=== PATIENT | female | born 1955 | race Caucasian/White ===

== ENCOUNTER 2018-06-11 14:38 | Inpatient (IN) | payer MEDICAID ==
[~2018-06-11] VITALS: Ht 149.9 cm; Wt 71.2 kg
[2018-06-11] MEDS ORDERED: TRAZ-212 PO (14:47)
[2018-06-11] MEDS ORDERED: RISP0.2514 PO (14:47)
[2018-06-11] MEDS ORDERED: HAL05 PO (14:47)
[2018-06-11] MEDS ORDERED: METF-816 PO (14:47)
[2018-06-11] MEDS ORDERED: DIVA125C2 PO (14:47)
[2018-06-11] MEDS ORDERED: CARV3.1242 PO (14:47)
[2018-06-11] MEDS ORDERED: ONDANSETRON HCL 4MG/2ML INJ IV STA (20:44)
[2018-06-11] MEDS ORDERED: MORPHINE SULFATE 4 MG/ML CPJ (NOT FOR IM USE) IV STA (20:44)
[2018-06-11] MEDS ORDERED: NITROGLYCERIN OINT 1GM/INCH UDPKT TD ONE (20:45)
[2018-06-11] MEDS ORDERED: NITROGLYCERIN 0.4MG TABLET SL SL PRN ×2 (20:45→22:15)
[2018-06-11 21:30] LABS: BASOPHILS % 0.5 % (0.0-2.0); EOSINOPHILS % 2.7 % (0.0-5.0); HEMATOCRIT. 36.2 % (36.0-48.0); HEMOGLOBIN. 12.4 g/dL (12.0-16.0); LYMPHOCYTES % 46.1 % (20.0-50.0); MEAN CORPUSCULAR HEMOGLOBIN 31.9 pg (28.0-32.0); MEAN CORPUSCULAR VOLUME 93.5 fL (81.0-99.0); MEAN PLATELET VOLUME 7.2 fl (7.4-10.4); MONOCYTES % 14.2 % (2.0-8.0); NEUTROPHILS % 36.5 % (40.0-76.0); PLATELET 148 x1000/uL (130-400); RED BLOOD CELL COUNT 3.87 mill/uL (4.2-5.4); RED CELL DISTRIBUTION WIDTH 13.7 % (11.6-14.6)
[2018-06-11 21:34] LABS: INR 0.9; PARTIAL THROMBOPLASTIN TIME 30.3 sec (23.4-31.0); PROTHROMBIN TIME 9.4 sec (9.1-11.1)
[2018-06-11 21:36] LABS: CHLORIDE 96 mEq/L (98-107)
[2018-06-11] MEDS ORDERED: MAGNESIUM 1 G PREMIX 100 ML IV ONE (22:00)
[2018-06-11] MEDS ORDERED: ONDANSETRON HCL 4MG/2ML INJ IV PRN (22:15)
[2018-06-11] MEDS ORDERED: NA PHOS,M-B/NA PHOS,DI-BA ENEMA 118ML PR PRN (22:15)
[2018-06-11] MEDS ORDERED: MAGNESIUM/ALUMINUM HYDROXIDE/SIMETHICONE 30ML UDC PO PRN (22:15)
[2018-06-11] MEDS ORDERED: IPRATROPIUM/ALBUTEROL 0.5-3(2.5)MG/3ML NEB INH PRN (22:15)
[2018-06-11] MEDS ORDERED: ACETAMINOPHEN 325MG TABLET PO PRN (22:15)
[2018-06-11] MEDS ORDERED: KETOROLAC 15MG/ML VIAL IV PRN (22:15)
[2018-06-11] MEDS ORDERED: DOCUSATE SODIUM 100MG CAPSULE PO PRN (22:15)
[2018-06-11] MEDS ORDERED: LORAZEPAM 0.5MG TABLET PO PRN (22:15)
[2018-06-11] MEDS ORDERED: GUAIFENESIN 200MG/10ML SUGAR FREE UDC PO PRN (22:15)
[2018-06-11] MEDS ORDERED: CLONIDINE 0.1MG TABLET PO PRN (22:15)
[2018-06-11] MEDS ORDERED: DEXTROSE 50% WATER 50ML SYRINGE IV PRN (22:15)
[2018-06-11] MEDS ORDERED: HALOPERIDOL LACTATE 5MG/ML VIAL IM PRN (22:15)
[2018-06-11 22:39] LABS: ETHANOL BLOOD < 10 mg/dL
[2018-06-11 22:42] LABS: HDL CHOLESTEROL 64 mg/dL (40-59); LDL CHOLESTEROL 94 mg/dL (5-100)
[2018-06-11 22:43] LABS: *AMPHETAMINES SCREEN URINE NEGATIVE (NEGATIVE); *BARBITURATES SCREEN URINE NEGATIVE (NEGATIVE); *BENZODIAZEPINES SCREEN URINE NEGATIVE (NEGATIVE); *COCAINE SCREEN URINE NEGATIVE (NEGATIVE); METHADONE URINE SCREEN NEGATIVE (NEGATIVE)
[2018-06-11 22:44] LABS: CANNABINOID URINE SCREEN NEGATIVE (NEGATIVE); OPIATES URINE SCREEN NEGATIVE (NEGATIVE); PHENCYCLIDINE URINE SCREEN NEGATIVE (NEGATIVE)
[2018-06-12 03:15] VITALS: BP 143/66
[2018-06-12] MEDS ORDERED: MULT-1116 PO (04:23)
[2018-06-12] MEDS ORDERED: ATOR10TA69 PO (04:24)
[2018-06-12] MEDS ORDERED: SENN-149 PO (04:26)
[2018-06-12] MEDS ORDERED: MOME13HF2 IH (04:27)
[2018-06-12] MEDS ORDERED: ALBU18HF2 IH (04:29)
[2018-06-12] MEDS ORDERED: ESCI20TA36 PO (04:30)
[2018-06-12] MEDS ORDERED: ASPI-1158 PO (04:31)
[2018-06-12] MEDS: BLOOD SUGAR DIAGNOSTIC STRIP TEST SCH ×4 (05:56→20:48)
[2018-06-12] MEDS: VALPROIC ACID 250MG CAPSULE PO SCH ×3 (06:08→21:05)
[2018-06-12] MEDS: INSULIN LISPRO 100 UNITS/ML SUBCUT SCH ×4 (07:50→20:48)
[2018-06-12 08:07] VITALS: BP 140/60
[2018-06-12] MEDS: FAMOTIDINE 20MG TABLET PO SCH ×2 (09:05→21:05)
[2018-06-12] MEDS: METOPROLOL TARTRATE 25MG TABLET PO SCH ×2 (09:06→21:00)
[2018-06-12] MEDS: LISINOPRIL 20MG TABLET PO SCH ×2 (09:06→21:00)
[2018-06-12] MEDS: ASPIRIN 325MG EC TABLET PO SCH (09:06)
[2018-06-12] MEDS: ENOXAPARIN 40MG/0.4ML SYR SUBCUT SCH (09:07)
[2018-06-12 11:46] VITALS: BP 127/68
[2018-06-12 12:28] LABS: CREATINE KINASE 49 IU/L (26-192); CREATINE KINASE MB FRACTION < 1.0 ng/mL (0.5-3.6)
[2018-06-12 15:44] VITALS: BP 132/66
[2018-06-12 16:13] LABS: CREATINE KINASE 44 IU/L (26-192); CREATINE KINASE MB FRACTION < 1.0 ng/mL (0.5-3.6)
[2018-06-12 19:45] VITALS: BP 153/82
[2018-06-12] MEDS ORDERED: TRAZODONE HCL 50MG TABLET PO SCH (21:00)
[2018-06-12] MEDS ORDERED: ZOLPIDEM TARTRATE 5MG TABLET PO PRN (21:00)
[2018-06-12 23:05] VITALS: BP 110/44
[2018-06-13 05:05] VITALS: BP 145/78
[2018-06-13] MEDS: VALPROIC ACID 250MG CAPSULE PO SCH ×2 (05:59→14:10)
[2018-06-13] MEDS: BLOOD SUGAR DIAGNOSTIC STRIP TEST SCH ×2 (06:02→12:35)
[2018-06-13] MEDS: INSULIN LISPRO 100 UNITS/ML SUBCUT SCH ×2 (07:36→12:35)
[2018-06-13 08:00] VITALS: BP 129/63
[2018-06-13] MEDS: ASPIRIN 325MG EC TABLET PO SCH (08:51)
[2018-06-13] MEDS: LISINOPRIL 20MG TABLET PO SCH (08:52)
[2018-06-13] MEDS: FAMOTIDINE 20MG TABLET PO SCH (08:52)
[2018-06-13] MEDS: ENOXAPARIN 40MG/0.4ML SYR SUBCUT SCH (08:53)
[2018-06-13] MEDS: METOPROLOL TARTRATE 25MG TABLET PO SCH (08:56)
[2018-06-13 12:00] VITALS: BP 120/63
[2018-06-13 13:56] VITALS: BP 127/60
== END 2018-06-13 15:12 | disposition home or self-care (01) | DRG 243 ==
LOC: ER 15:41 → 6WST 22:01 → EDBEDREQ 22:04 → EDBEDREQTM 22:04 → ENRESERV 06-12 01:58
PROVIDERS: ADMIT Internal Medicine; ATTEND Internal Medicine
DX: K21.9 Gastro-esophageal reflux disease without esophagitis (principal); E44.0 Moderate protein-calorie malnutrition; E83.42 Hypomagnesemia; E87.1 Hypo-osmolality and hyponatremia; I25.2 Old myocardial infarction; F99 Mental disorder, not otherwise specified; E11.9 Type 2 diabetes mellitus without complications; I10 Essential (primary) hypertension; J45.909 Unspecified asthma, uncomplicated; Z79.4 Long term (current) use of insulin; Z79.82 Long term (current) use of aspirin; Z79.899 Other long term (current) drug therapy; Z88.0 Allergy status to penicillin; Z59.0 Homelessness; Z68.31 Body mass index [BMI] 31.0-31.9, adult; M94.0 Chondrocostal junction syndrome [Tietze]
CPT/HCPCS: 36415; 71045; 80061; 80165; 80305; 82550; 82553; 82962; 83036; 83735; 83880; 84484; 93005; 93970; 99285; G0482; J1650; J1885; J2270; J2405; J3475

== ENCOUNTER 2018-11-03 13:31 | Inpatient (IN) | payer MEDICAID ==
[~2018-11-03] VITALS: Ht 160 cm; Wt 74.8 kg
[~2018-11-03 13:31] MED LIST: ALBU18HF2 IH; ASPI-1158 PO; ATOR10TA69 PO; CARV3.1242 PO; DIVA125C2 PO; ESCI20TA36 PO; HAL05 PO; METF-816 PO; MOME13HF2 IH; MULT-1116 PO; RISP0.2514 PO; SENN-149 PO; TRAZ-212 PO
[2018-11-03 15:53] LABS: BASOPHILS % 0.7 % (0.0-2.0); CHLORIDE 102 mEq/L (98-107); HEMATOCRIT. 38.7 % (36.0-48.0); LYMPHOCYTES % 36.1 % (20.0-50.0); MEAN CORPUSCULAR HEMOGLOBIN 31.8 pg (28.0-32.0); MEAN CORPUSCULAR VOLUME 94.8 fL (81.0-99.0); MEAN PLATELET VOLUME 7.2 fl (7.4-10.4); MONOCYTES % 11.1 % (2.0-8.0); NEUTROPHILS % 49.1 % (40.0-76.0); PLATELET 214 x1000/uL (130-400); RED BLOOD CELL COUNT 4.08 mill/uL (4.2-5.4); RED CELL DISTRIBUTION WIDTH 13.9 % (11.6-14.6)
[2018-11-03] MEDS ORDERED: METHOCARBAMOL 750MG TABLET PO SCH (16:00)
[2018-11-04] MEDS ORDERED: ALBUTEROL 6.7GM HFA INHALER INH SCH (00:45)
[2018-11-04] MEDS ORDERED: DEXTROSE 50% WATER 50ML SYRINGE IV PRN (00:45)
[2018-11-04] MEDS ORDERED: ZOLPIDEM TARTRATE 5MG TABLET PO PRN (00:45)
[2018-11-04] MEDS ORDERED: NICO-645 TD (01:18)
[2018-11-04 01:21] VITALS: BP 141/62
[2018-11-04] MEDS ORDERED: ALBUTEROL (0.083%) 2.5MG/3ML NEB HHN PRN (01:30)
[2018-11-04 04:00] VITALS: BP 119/63
[2018-11-04 05:22] LABS: CLARITY URINE CLEAR (CLEAR); COLOR URINE YELLOW (YELLOW); KETONES URINE NEGATIVE (NEGATIVE); LEUKOCYTE ESTERASE URINE NEGATIVE (NEGATIVE); NITRITE URINE NEGATIVE (NEGATIVE); OCCULT BLOOD URINE NEGATIVE (NEGATIVE); PROTEIN URINE NEGATIVE (NEGATIVE); SPECIFIC GRAVITY URINE 1.008 (1.005-1.030); UROBILINOGEN URINE 0.2 E.U./dL (0.2-1.0)
[2018-11-04 06:14] LABS: HEMATOCRIT. 38.1 % (36.0-48.0); MEAN CORPUSCULAR HEMOGLOBIN 32.4 pg (28.0-32.0); MEAN CORPUSCULAR VOLUME 94.6 fL (81.0-99.0); MEAN PLATELET VOLUME 7.7 fl (7.4-10.4); PLATELET 211 x1000/uL (130-400); RED BLOOD CELL COUNT 4.03 mill/uL (4.2-5.4); RED CELL DISTRIBUTION WIDTH 13.9 % (11.6-14.6)
[2018-11-04 06:33] LABS: CHLORIDE 104 mEq/L (98-107)
[2018-11-04 06:53] LABS: CREATINE KINASE 57 IU/L (26-192)
[2018-11-04 06:57] LABS: CREATINE KINASE MB FRACTION 1.4 ng/mL (0.5-3.6)
[2018-11-04] MEDS: BLOOD SUGAR DIAGNOSTIC STRIP TEST SCH ×4 (07:20→20:33)
[2018-11-04] MEDS: INSULIN LISPRO 100 UNITS/ML SUBCUT SCH ×4 (07:50→20:33)
[2018-11-04 08:00] VITALS: BP 140/63
[2018-11-04] MEDS ORDERED: MEDICATION NOT ON FORMULARY EA (Mometasone/Formoterol (Dulera 100 Mcg/5 Mcg Inhaler) 2 P IH SCH (09:00)
[2018-11-04] MEDS ORDERED: HALOPERIDOL 5MG TABLET PO PRN (09:00)
[2018-11-04] MEDS ORDERED: ESCITALOPRAM OXALATE 20 MG PO SCH (09:00)
[2018-11-04] MEDS: CITALOPRAM HYDROBROMIDE 20MG TABLET PO SCH (09:03)
[2018-11-04] MEDS: ASPIRIN 81MG TABLET PO SCH (09:03)
[2018-11-04] MEDS: RISPERIDONE 0.25MG TABLET PO SCH (09:03)
[2018-11-04] MEDS: SENNOSIDES/DOCUSATE SOD 8.6/50MG TABLET PO SCH ×2 (09:03→17:39)
[2018-11-04] MEDS: CARVEDILOL 3.125 MG TABLET PO SCH ×2 (09:04→20:40)
[2018-11-04] MEDS: NICOTINE 7MG PATCH TD SCH (09:04)
[2018-11-04] MEDS: ENOXAPARIN 40MG/0.4ML SYR SUBCUT SCH (09:05)
[2018-11-04] MEDS: DIVALPROEX SODIUM 250MG DR TABLET PO SCH ×2 (09:15→20:38)
[2018-11-04] MEDS: ACETAMINOPHEN 325MG TABLET PO PRN ×2 (09:15→17:40)
[2018-11-04 12:00] VITALS: BP 131/65
[2018-11-04 13:32] LABS: CREATINE KINASE 44 IU/L (26-192)
[2018-11-04 13:33] LABS: CREATINE KINASE MB FRACTION 1.2 ng/mL (0.5-3.6)
[2018-11-04 14:28] LABS: *AMPHETAMINES SCREEN URINE NEGATIVE (NEGATIVE); *BARBITURATES SCREEN URINE NEGATIVE (NEGATIVE); *BENZODIAZEPINES SCREEN URINE NEGATIVE (NEGATIVE); *COCAINE SCREEN URINE NEGATIVE (NEGATIVE)
[2018-11-04 14:29] LABS: CANNABINOID URINE SCREEN NEGATIVE (NEGATIVE); METHADONE URINE SCREEN NEGATIVE (NEGATIVE); OPIATES URINE SCREEN NEGATIVE (NEGATIVE); PHENCYCLIDINE URINE SCREEN NEGATIVE (NEGATIVE)
[2018-11-04 16:00] VITALS: BP 120/60
[2018-11-04 20:30] VITALS: BP 123/57
[2018-11-04] MEDS: BUDESONIDE 0.5MG/2ML NEB HHN SCH (20:42)
[2018-11-04] MEDS: ALBUTEROL (0.083%) 2.5MG/3ML NEB HHN SCH (20:42)
[2018-11-04] MEDS ORDERED: ATORVASTATIN CALCIUM 10MG TABLET PO SCH (21:00)
[2018-11-04] MEDS ORDERED: TRAZODONE HCL 100MG TABLET PO SCH (21:00)
[2018-11-05] VITALS: BP 140/65
[2018-11-05] MEDS: ALBUTEROL (0.083%) 2.5MG/3ML NEB HHN SCH ×3 (02:22→14:12)
[2018-11-05 04:00] VITALS: BP 120/59
[2018-11-05 06:36] LABS: BASOPHILS % 0.8 % (0.0-2.0); EOSINOPHILS % 3.1 % (0.0-5.0); HEMATOCRIT. 39.3 % (36.0-48.0); HEMOGLOBIN. 13.2 g/dL (12.0-16.0); LYMPHOCYTES % 41.1 % (20.0-50.0); MEAN CORPUSCULAR HEMOGLOBIN 31.8 pg (28.0-32.0); MEAN CORPUSCULAR VOLUME 94.7 fL (81.0-99.0); MEAN PLATELET VOLUME 7.3 fl (7.4-10.4); MONOCYTES % 12.7 % (2.0-8.0); NEUTROPHILS % 42.3 % (40.0-76.0); PLATELET 187 x1000/uL (130-400); RED BLOOD CELL COUNT 4.15 mill/uL (4.2-5.4); RED CELL DISTRIBUTION WIDTH 13.5 % (11.6-14.6)
[2018-11-05] MEDS ORDERED: REGADENOSON 0.4 MG/5 ML IV ONE ×2 (07:00→09:45)
[2018-11-05] MEDS: BLOOD SUGAR DIAGNOSTIC STRIP TEST SCH ×3 (07:42→18:13)
[2018-11-05] MEDS: INSULIN LISPRO 100 UNITS/ML SUBCUT SCH ×3 (07:50→17:50)
[2018-11-05 08:00] VITALS: BP 111/69
[2018-11-05] MEDS: BUDESONIDE 0.5MG/2ML NEB HHN SCH (08:10)
[2018-11-05] MEDS: DIVALPROEX SODIUM 250MG DR TABLET PO SCH (08:28)
[2018-11-05] MEDS: CITALOPRAM HYDROBROMIDE 20MG TABLET PO SCH (08:29)
[2018-11-05] MEDS: RISPERIDONE 0.25MG TABLET PO SCH (08:31)
[2018-11-05] MEDS: SENNOSIDES/DOCUSATE SOD 8.6/50MG TABLET PO SCH ×2 (08:31→18:14)
[2018-11-05] MEDS: ASPIRIN 81MG TABLET PO SCH (08:32)
[2018-11-05] MEDS: ENOXAPARIN 40MG/0.4ML SYR SUBCUT SCH (08:32)
[2018-11-05] MEDS: CARVEDILOL 3.125 MG TABLET PO SCH (08:34)
[2018-11-05 08:49] LABS: CHLORIDE 102 mEq/L (98-107)
[2018-11-05] MEDS: NICOTINE 7MG PATCH TD SCH (09:00)
[2018-11-05 12:00] VITALS: BP 134/73
[2018-11-05 16:00] VITALS: BP 103/64
[2018-11-05 17:52] LABS: PLATELET ESTIMATE NORMAL
[2018-11-05] MEDS: ACETAMINOPHEN 325MG TABLET PO PRN (18:16)
[2018-11-05 18:57] VITALS: BP 103/64
== END 2018-11-05 19:40 | disposition home or self-care (01) | DRG 203 ==
LOC: ER 13:51 → 6WST 16:45 → ENRESERV 22:49
PROVIDERS: ADMIT Internal Medicine; ATTEND Internal Medicine
DX: M94.0 Chondrocostal junction syndrome [Tietze] (principal); E11.9 Type 2 diabetes mellitus without complications; I25.2 Old myocardial infarction; J44.9 Chronic obstructive pulmonary disease, unspecified; E78.5 Hyperlipidemia, unspecified; I10 Essential (primary) hypertension; J98.11 Atelectasis; F32.9 Major depressive disorder, single episode, unspecified; R19.00 Intra-abdominal and pelvic swelling, mass and lump, unspecified site; S82.891A Other fracture of right lower leg, initial encounter for closed fracture; W18.30XA Fall on same level, unspecified, initial encounter; Y93.89 Activity, other specified; Y92.89 Other specified places as the place of occurrence of the external cause; Y99.8 Other external cause status; Z87.891 Personal history of nicotine dependence; Z88.0 Allergy status to penicillin; Z88.5 Allergy status to narcotic agent; Z79.899 Other long term (current) drug therapy; Z79.82 Long term (current) use of aspirin; Z98.61 Coronary angioplasty status
CPT/HCPCS: 36415; 71045; 73610; 78452; 80048; 80061; 80305; 82550; 82553; 82962; 83036; 83735; 83880; 84443; 84484; 93005; 93017; 93306; 93970; 96361; 96374; 96375; 99285; A9500; J1630; J1650; J2785; J7611; J7626

== ENCOUNTER 2022-01-16 12:16 | Inpatient (IN) | payer MEDICAID, OTHER ==
[~2022-01-16] VITALS: Ht 149.9 cm; Wt 85.8 kg
[~2022-01-16 12:16] MED LIST changes: -ASPI-1158 PO; +ASPI-1406 PO; -ESCI20TA36 PO; +ESCI20TA37 PO; -HAL05 PO; +HALO0.5T2 PO; -METF-816 PO; +METF-874 PO; +NICO-645 TD; -TRAZ-212 PO; +TRAZ-251 PO
[2022-01-16] MEDS ORDERED: ASPIRIN 81MG TABLET PO NR (13:00)
[2022-01-16] MEDS ORDERED: SODIUM CHLORIDE 0.9% 1,000 ML IV ONE (13:00)
[2022-01-16] MEDS ORDERED: ASPIRIN 81MG TABLET PO ONE (13:00)
[2022-01-16 15:14] LABS: BASOPHILS % 0.3 % (0.0-2.0); HEMATOCRIT. 41.7 % (36.0-48.0); LYMPHOCYTES % 31.2 % (20.0-50.0); MEAN CORPUSCULAR HEMOGLOBIN 31.1 pg (28.0-32.0); MEAN CORPUSCULAR VOLUME 92.8 fL (81.0-99.0); MONOCYTES % 11.1 % (2.0-8.0); NEUTROPHILS % 56.4 % (40.0-76.0); PLATELET 159 x1000/uL (130-400); RED CELL DISTRIBUTION WIDTH 13.8 % (11.6-14.6)
[2022-01-16 15:23] LABS: CHLORIDE 106 mEq/L (98-107)
[2022-01-16 22:15] VITALS: BP 117/52
[2022-01-16 23:00] VITALS: BP 117/52
[2022-01-17] VITALS: BP 123/43
[2022-01-17] MEDS ORDERED: DIVALPROEX SODIUM 500MG ER TABLET PO SCH (01:00)
[2022-01-17 08:00] VITALS: BP 162/82
[2022-01-17] MEDS: DULOXETINE HCL 60MG DR CAPSULE PO SCH (09:55)
[2022-01-17] MEDS: ASPIRIN 81MG TABLET PO SCH (09:55)
[2022-01-17] MEDS: DIVALPROEX SODIUM 500MG ER TABLET PO SCH ×2 (09:55→22:12)
[2022-01-17] MEDS: ENOXAPARIN 40MG/0.4ML SYR SUBCUT SCH (09:57)
[2022-01-17 12:00] VITALS: BP 140/76
[2022-01-17] MEDS ORDERED: INFLUENZA VACCINE 05/PF 0.5 ML SYRINGE IM ONE (12:00)
[2022-01-17] MEDS ORDERED: PNEUMOCOCCAL 23-VAL P-SAC VAC 0.5 ML IM ONE (12:00)
[2022-01-17] MEDS ORDERED: IPRATROPIUM/ALBUTEROL 0.5-3(2.5)MG/3ML NEB HHN PRN (12:30)
[2022-01-17 16:00] VITALS: BP 145/78
[2022-01-17 18:00] VITALS: BP 142/74
[2022-01-17 19:52] LABS: *AMPHETAMINES SCREEN URINE NEGATIVE (NEGATIVE); *BARBITURATES SCREEN URINE NEGATIVE (NEGATIVE); *BENZODIAZEPINES SCREEN URINE NEGATIVE (NEGATIVE); *COCAINE SCREEN URINE NEGATIVE (NEGATIVE); CANNABINOID URINE SCREEN NEGATIVE (NEGATIVE); METHADONE URINE SCREEN NEGATIVE (NEGATIVE); OPIATES URINE SCREEN NEGATIVE (NEGATIVE); PHENCYCLIDINE URINE SCREEN NEGATIVE (NEGATIVE)
[2022-01-17 20:00] VITALS: BP 135/53
[2022-01-17] MEDS: HALOPERIDOL 5MG TABLET PO SCH (22:12)
[2022-01-17] MEDS: ATORVASTATIN CALCIUM 40MG TABLET PO SCH (22:12)
[2022-01-18] VITALS: BP 112/52
[2022-01-18] MEDS ORDERED: ATOR40TA70 MT (01:10)
[2022-01-18] MEDS ORDERED: LOSA50TA41 PO (01:12)
[2022-01-18 04:00] VITALS: BP 136/63
[2022-01-18 08:00] VITALS: BP 125/60
[2022-01-18] MEDS: DULOXETINE HCL 60MG DR CAPSULE PO SCH (09:16)
[2022-01-18] MEDS: DIVALPROEX SODIUM 500MG ER TABLET PO SCH ×2 (09:16→21:01)
[2022-01-18] MEDS: ENOXAPARIN 40MG/0.4ML SYR SUBCUT SCH (09:17)
[2022-01-18] MEDS: ASPIRIN 81MG TABLET PO SCH (09:19)
[2022-01-18 12:00] VITALS: BP 120/55
[2022-01-18 16:00] VITALS: BP 131/61
[2022-01-18 20:00] VITALS: BP 120/60
[2022-01-18] MEDS: ATORVASTATIN CALCIUM 40MG TABLET PO SCH (21:01)
[2022-01-18] MEDS: HALOPERIDOL 5MG TABLET PO SCH (21:01)
[2022-01-19] VITALS: BP 119/55
[2022-01-19 04:00] VITALS: BP 120/55
[2022-01-19 06:32] LABS: BASOPHILS % 0.5 % (0.0-2.0); EOSINOPHILS % 1.9 % (0.0-5.0); HEMATOCRIT. 41.3 % (36.0-48.0); HEMOGLOBIN. 14.3 g/dL (12.0-16.0); LYMPHOCYTES % 41.8 % (20.0-50.0); MEAN CORPUSCULAR HEMOGLOBIN 31.4 pg (28.0-32.0); MEAN CORPUSCULAR VOLUME 90.8 fL (81.0-99.0); MEAN PLATELET VOLUME 7.1 fl (7.4-10.4); NEUTROPHILS % 42.8 % (40.0-76.0); PLATELET 173 x1000/uL (130-400); RED BLOOD CELL COUNT 4.55 mill/uL (4.2-5.4); RED CELL DISTRIBUTION WIDTH 13.8 % (11.6-14.6)
[2022-01-19 08:00] VITALS: BP 150/70
[2022-01-19] MEDS: DIVALPROEX SODIUM 500MG ER TABLET PO SCH (08:32)
[2022-01-19] MEDS: ASPIRIN 81MG TABLET PO SCH (08:32)
[2022-01-19] MEDS: DULOXETINE HCL 60MG DR CAPSULE PO SCH (08:32)
[2022-01-19] MEDS: ENOXAPARIN 40MG/0.4ML SYR SUBCUT SCH (08:33)
[2022-01-19 12:00] VITALS: BP 147/58
[2022-01-19 14:44] VITALS: BP 123/68
[2022-01-19 16:00] VITALS: BP 123/68
[2022-01-19] MEDS ORDERED: DIVALPROEX SODIUM 500MG DR TABLET PO SCH (17:00)
== END 2022-01-19 18:21 | disposition home or self-care (01) | DRG 203 ==
LOC: ER 12:16 → 6WST 17:41 → EDBEDREQSVC 17:47 → EDBEDREQ 17:47 → EDBEDREQSVC 17:48 → ENRESERV 19:38
PROVIDERS: ADMIT Internal Medicine; ATTEND Internal Medicine
DX: M94.0 Chondrocostal junction syndrome [Tietze] (principal); E44.1 Mild protein-calorie malnutrition; I42.9 Cardiomyopathy, unspecified; R00.2 Palpitations; R06.02 Shortness of breath; I10 Essential (primary) hypertension; J44.9 Chronic obstructive pulmonary disease, unspecified; E11.9 Type 2 diabetes mellitus without complications; R77.8 Other specified abnormalities of plasma proteins; I44.7 Left bundle-branch block, unspecified; E78.00 Pure hypercholesterolemia, unspecified; Z68.38 Body mass index [BMI] 38.0-38.9, adult; Z20.822 Contact with and (suspected) exposure to COVID-19; I25.2 Old myocardial infarction; Z88.0 Allergy status to penicillin; Z86.73 Personal history of transient ischemic attack (TIA), and cerebral infarction without residual deficits
CPT/HCPCS: 36415; 71045; 80048; 80053; 80305; 82962; 83880; 84484; 85025; 85379; 87426; 90732; 93005; 93306; 99285; C9803; J1630; J1650; J7030

== ENCOUNTER 2023-12-10 16:58 | Inpatient (IN) | payer MEDICAID, OTHER ==
[~2023-12-10] VITALS: Ht 149.9 cm; Wt 78.0 kg
[~2023-12-10 16:58] MED LIST changes: +ATOR40TA70 MT; +LOSA50TA41 PO; +MOME13HF12 IH; -MOME13HF2 IH
[2023-12-10] MEDS ORDERED: KETOROLAC 15MG/ML VIAL IV ONE (19:00)
[2023-12-10] MEDS: MORPHINE SULFATE 4 MG/ML INJ (FOR IV/IM USE) IV NR (19:00)
[2023-12-10] MEDS: KETOROLAC 15MG/ML VIAL IV NR (19:00)
[2023-12-10] MEDS ORDERED: MORPHINE SULFATE 4 MG/ML INJ (FOR IV/IM USE) IV ONE (19:00)
[2023-12-10 19:44] LABS: CARBON DIOXIDE 29 mEq/L (21-32); CHLORIDE 85 mEq/L (98-107); POTASSIUM 3.3 mEq/L (3.5-5.1)
[2023-12-10 19:45] LABS: CALCIUM 9.7 mg/dL (8.7-10.4)
[2023-12-10 19:49] LABS: BASOPHILS % 0.2 % (0.0-2.0); CREATININE 0.6 mg/dL (0.6-1.0); EOSINOPHILS % 0.4 % (0.0-5.0); GLUCOSE 114 mg/dL (70-105); HEMATOCRIT. 39.1 % (36.0-48.0); HEMOGLOBIN. 13.5 g/dL (12.0-16.0); LYMPHOCYTES % 27.5 % (20.0-50.0); MEAN CORPUSCULAR HEMOGLOBIN 31.9 pg (28.0-32.0); MEAN CORPUSCULAR HGB CONC 34.6 g/dL (31.0-37.0); MEAN CORPUSCULAR VOLUME 92.2 fL (81.0-99.0); MEAN PLATELET VOLUME 6.6 fl (7.4-10.4); MONOCYTES % 12.1 % (2.0-8.0); NEUTROPHILS % 59.8 % (40.0-76.0); PLATELET 187 x1000/uL (130-400); RED BLOOD CELL COUNT 4.24 mill/uL (4.2-5.4); RED CELL DISTRIBUTION WIDTH 13.9 % (11.6-14.6); WHITE BLOOD COUNT 7.3 x1000/uL (4.5-11.0)
[2023-12-10 19:50] LABS: UREA NITROGEN BLOOD 10 mg/dL (9-23)
[2023-12-10 19:52] LABS: ALANINE AMINOTRANSFERASE 24 IU/L (10-49); ALBUMIN 4.7 g/dL (3.2-4.8); ASPARTATE AMINOTRANSFERASE 30 IU/L (<34); BILIRUBIN TOTAL 0.9 mg/dL (0.1-1.0); PROTEIN TOTAL 7.9 g/dL (6.0-8.3)
[2023-12-10 19:54] LABS: INR 0.9; PROTHROMBIN TIME 10.1 sec (9.6-11.0); SODIUM 120 mEq/L (136-145)
[2023-12-10] MEDS: SODIUM CHLORIDE 0.9% 1,000 ML IV ONE (21:30)
[2023-12-10] MEDS ORDERED: IOHEXOL-300 100 ML BOTTLE ONE (22:23)
[2023-12-11] VITALS (8 sets, daily range): BP systolic 113–166; BP diastolic 57–79; PULSE 68–82; RESP 18–20; TEMP 97–98.1; O2SAT 94
[2023-12-11] MEDS ORDERED: HYDROCODONE/ACETAMINOPHEN 5/325MG TABLET PO PRN (02:30)
[2023-12-11] MEDS ORDERED: ACETAMINOPHEN 325MG TABLET PO PRN (02:30)
[2023-12-11] MEDS: POTASSIUM CHLORIDE 20MEQ TABLET SR PO NR (03:18)
[2023-12-11] MEDS: SODIUM CHLORIDE 0.9% 1,000 ML IV SCH (03:19)
[2023-12-11] MEDS: DULOXETINE HCL 30MG DR CAPSULE PO SCH ×2 (08:51→13:15)
[2023-12-11] MEDS: HALOPERIDOL 5MG TABLET PO SCH (08:51)
[2023-12-11] MEDS: DIVALPROEX SODIUM 250MG DR TABLET PO SCH (08:51)
[2023-12-11] MEDS: LORATADINE 10MG TABLET PO SCH (08:52)
[2023-12-11 09:44] LABS: CHLORIDE 101 mEq/L (98-107); POTASSIUM 3.4 mEq/L (3.5-5.1); SODIUM 131 mEq/L (136-145)
[2023-12-11 09:45] LABS: CALCIUM 9.1 mg/dL (8.7-10.4); CARBON DIOXIDE 26 mEq/L (21-32)
[2023-12-11 09:50] LABS: CREATININE 0.5 mg/dL (0.6-1.0); GLUCOSE 83 mg/dL (70-105); UREA NITROGEN BLOOD 8 mg/dL (9-23)
[2023-12-11 10:01] LABS: HEMATOCRIT. 41.6 % (36.0-48.0); MEAN CORPUSCULAR HEMOGLOBIN 32.3 pg (28.0-32.0); MEAN CORPUSCULAR HGB CONC 33.5 g/dL (31.0-37.0); MEAN CORPUSCULAR VOLUME 96.2 fL (81.0-99.0); PLATELET 142 x1000/uL (130-400); RED BLOOD CELL COUNT 4.33 mill/uL (4.2-5.4); RED CELL DISTRIBUTION WIDTH 14.3 % (11.6-14.6); WHITE BLOOD COUNT 4.9 x1000/uL (4.5-11.0)
[2023-12-11 10:25] LABS: DIFFERENTIAL COMMENT 1
[2023-12-11] MEDS: KETOROLAC 15MG/ML VIAL IV PRN (13:21)
[2023-12-11 13:22] LABS: PLATELET ESTIMATE NORMAL
[2023-12-11] MEDS: CLONIDINE 0.1MG TABLET PO PRN (13:22)
[2023-12-11] MEDS: MONTELUKAST SODIUM 10MG TABLET PO SCH (18:14)
[2023-12-11 19:06] LABS: CLARITY URINE CLEAR (CLEAR); COLOR URINE YELLOW (YELLOW); GLUCOSE URINE NEGATIVE (NEGATIVE); KETONES URINE TRACE (NEGATIVE); LEUKOCYTE ESTERASE URINE NEGATIVE (NEGATIVE); NITRITE URINE NEGATIVE (NEGATIVE); OCCULT BLOOD URINE NEGATIVE (NEGATIVE); PROTEIN URINE NEGATIVE (NEGATIVE); SPECIFIC GRAVITY URINE 1.011 (1.005-1.030); UROBILINOGEN URINE 0.2 E.U./dL (0.2-1.0)
[2023-12-11] MEDS: DIVALPROEX SODIUM 500MG DR TABLET PO SCH (21:48)
[2023-12-11] MEDS: ATORVASTATIN CALCIUM 40MG TABLET PO SCH (21:48)
[2023-12-11] MEDS: BUDESONIDE 0.5MG/2ML NEB HHN SCH (23:48)
[2023-12-12] VITALS (8 sets, daily range): BP systolic 116–145; BP diastolic 45–73; PULSE 62–92; RESP 18–20; TEMP 97.3–97.9
[2023-12-12] MEDS: IPRATROPIUM/ALBUTEROL 0.5-3(2.5)MG/3ML NEB HHN PRN (21:16)
[2023-12-13] VITALS: BP 126/68; PULSE 78; RESP 20; TEMP 97.9
[2023-12-13 04:00] VITALS: BP 149/62; PULSE 68; RESP 18; TEMP 98.1
[2023-12-13 08:00] VITALS: BP 163/55; PULSE 61; RESP 18; TEMP 97.5
[2023-12-13 10:45] VITALS: PULSE 69; RESP 18
[2023-12-13 12:00] VITALS: BP 136/68; PULSE 80; RESP 18; TEMP 97.9
[2023-12-13 14:11] VITALS: BP 136/68; PULSE 80; TEMP 97.9; O2SAT 94
== END 2023-12-13 15:10 | disposition home health service (06) ==
LOC: ER 16:58 → 7EST 22:21
PROVIDERS: ADMIT Internal Medicine; ATTEND Internal Medicine
DX: K80.20 Calculus of gallbladder without cholecystitis without obstruction (principal); G93.41 Metabolic encephalopathy; E87.1 Hypo-osmolality and hyponatremia; E11.9 Type 2 diabetes mellitus without complications; E87.6 Hypokalemia; E66.9 Obesity, unspecified; I10 Essential (primary) hypertension; J45.909 Unspecified asthma, uncomplicated; Z86.73 Personal history of transient ischemic attack (TIA), and cerebral infarction without residual deficits; Z88.0 Allergy status to penicillin; Z68.34 Body mass index [BMI] 34.0-34.9, adult
CPT/HCPCS: 36415; 73502; 74177; 80048; 80053; 81003; 85025; 94640; 97162; 99291; J1630; J1885; J2270; J7030; J7626; Q9967